=== PATIENT | male | born 1970 | race Two or more races ===

== ENCOUNTER 2020-11-02 10:10 | Emergency (ER) | payer OTHER ==
[~2020-11-02] VITALS: Ht 175.3 cm; Wt 100.0 kg
[2020-11-02] MEDS ORDERED: SODIUM CHLORIDE 0.9% 1,000 ML IV ONE (11:00)
[2020-11-02] MEDS ORDERED: LORATADINE 10MG TABLET PO SCH (11:00)
[2020-11-02] MEDS ORDERED: FAMOTIDINE 20MG/2ML VIAL IV ONE (11:00)
[2020-11-02] MEDS ORDERED: DIPHENHYDRAMINE 50MG/ML VIAL IV ONE (11:00)
[2020-11-02] MEDS ORDERED: DEXAMETHASONE 4MG/ML 1ML VIAL IV ONE (11:00)
[2020-11-02] MEDS ORDERED: FAMO-135 MT (14:27)
[2020-11-02] MEDS ORDERED: CETI-89 MT (14:27)
[2020-11-02] MEDS ORDERED: DIPH25CA83 PO (14:27)
[2020-11-02] MEDS ORDERED: EPIN0.3P3 IM (14:28)
[2020-11-02 14:36] VITALS: BP 131/89
== END 2020-11-02 14:38 | disposition home or self-care (01) ==
LOC: ER 10:15
DX: R22.0 Localized swelling, mass and lump, head (principal); T78.49XA Other allergy, initial encounter; X58.XXXA Exposure to other specified factors, initial encounter; F17.290 Nicotine dependence, other tobacco product, uncomplicated; F12.10 Cannabis abuse, uncomplicated; Z79.899 Other long term (current) drug therapy
CPT/HCPCS: 96361; 96374; 96375; 99284; J1100; J1200; J3490; J7030